=== PATIENT | female | born 1935 | race Caucasian/White ===

== ENCOUNTER → 2024-10-07 10:57 | Outpatient (REF) | payer MEDICARE, SELFPAY ==
[2024-10-07 11:28] LABS: % Basophils 0.4 % (0-2); % Eosinophils 0.7 % (0-6); % Immature Granulocytes 0.4 % (0-0.5); % Lymphocytes 30.7 % (20.5-51.1); % Monocytes 6.5 % (1.7-9.3); % Neutrophils 61.3 % (42.2-75.2); Absolute Lymphocytes 1.7 10^3/uL (1.2-3.4); Absolute Monocytes 0.4 10^3/uL (0.1-0.6); Absolute Neutrophils 3.5 10^3/uL (1.4-6.5); Hematocrit 38.8 % (37.0-47.0); Hemoglobin 13.1 g/dL (12.0-16.0); Mean Corp Hgb Conc. 33.8 g/dL (33.0-37.0); Mean Corpuscular Volume 97.7 fL (81.0-99.0); Mean Platelet Volume 12.7 fL (7.4-10.4); Nucleated Red Blood Cells % 0 %; Platelet Count 150 10^3/uL (130-400); Red Blood Cell Count 3.97 10^6/uL (4.20-5.40); Red Cell Dist. Width 14.2 % (11.5-14.5); White Blood Cell Count 5.7 10^3/uL (4.8-10.8)
[2024-10-07 11:34] LABS: Uric Acid 2.2 mg/dl (2.5-6.2)
== END ==
LOC: OLABN 10:57
PROVIDERS: ATTENDING PHYSICIAN Student in an Organized Health Care Education/Training Program
DX: L53.9 Erythematous condition, unspecified (principal); R22.40 Localized swelling, mass and lump, unspecified lower limb; M79.674 Pain in right toe(s)
CPT/HCPCS: 36415; 84550; 85025

== ENCOUNTER 2024-10-16 15:32 | Emergency (ER) | payer MEDICARE, SELFPAY ==
[2024-10-16 15:43] VITALS: BP 165/83
--- NOTE | 2024-10-16 15:44 | ED.GENMED ---
ED Provider Triage
<Adilson Westfall PA-C - Last Filed: 10/16/24 20:42>
-
Patient seen by provider in Triage?: Seen in Triage
Attestation: A medical screening examination has been initiated by a qualified medical provider. Based on the assessment performed at this time, it has been determined that an emergent medical condition may exist and the patient has been informed
that further medical evaluation and possible additional diagnostic testing may be needed.
HPI: 89-year-old female presenting the emergency department for diffuse body rash. Patient states it is not painful nor pruritic. Noticed this last night when she went to go shower. Recently on an antibiotic but unsure as to what for her toe
infection. Denies fevers or infectious symptoms. Patient otherwise hemodynamically stable. Labs ordered
GENERAL: Alert , in no apparent distress
EYE: No visual abnormalities.
NECK: Trachea midline
ENT: No visible abnormalities.
LUNGS: No acute respiratory distress
NEUROLOGICAL: Alert and oriented
SKIN: Skin intact. No visible changes.
MUSCULOSKELETAL: Moving extremities normally edema to bilateral feet did
PSYCH: Normal and appropriate interaction.
This is a medical evaluation conducted in person to initiate diagnostic evaluation and provide initial therapeutics. Please see further documentation by the treating clinician.
History of Present Illness
<Adilson Westfall PA-C - Last Filed: 10/16/24 20:42>
General
Chief Complaint: Skin Problem
Time Seen by Provider: 10/16/24 17:40
<Julianne Torres NP - Last Filed: 10/16/24 18:57>
General
Source: patient and family
Exam Limitations: none
Nursing documentation reviewed up to this point in time: agreed with
History of Present Illness
History of Present Illness:
Patient to ED for eval of skin rash. SHe states transport assistant noticed rash this AM. SHe denies any pain or itching. Rash located on trunk, upper and lower extremities. Denies any SOB, CP/pressure. No difficulty breathing or swallowing. SHe
was on an antibiotic for ingrown toenail. Finished course 3 days ago. She does not recall what antibiotic she took. Call placed to [facility], awaiting return call.
Past History
<Adilson Westfall PA-C - Last Filed: 10/16/24 20:42>
Past History
ED Past Medical History: GERD, HTN and Other (Diverticulitis, arthritis)
ED Past Surgical History: Cholecystectomy and Gynecological
Social History
Tobacco: Non-smoker
Alcohol: None
Drug: None
Personal:
Living: with family
Employment: Retired
Family History
Family History: Hypertension
Review of Systems
<Julianne Torres NP - Last Filed: 10/16/24 18:57>
Review of Systems
Allergies reviewed?: Yes
All Other Systems: ROS reviewed and negative except as documented in HPI and ROS
Constitutional: Reports no symptoms
EENT: Reports no symptoms
Respiratory: Reports no symptoms
Cardiac: Reports no symptoms
ABD/GI: Reports no symptoms
: Reports no symptoms
Musculoskeletal: Reports no symptoms
Skin: Reports other (Drug rash noted to trunk, upper and lower extremities.)
Neurological: Reports no symptoms
Psychiatric: Reports no symptoms
Phy Exam
<Julianne Torres NP - Last Filed: 10/16/24 18:57>
General Physical Exam
General Presentation: well appearing and no apparent distress
General age: appears stated age
General Skin: warm and dry
General Habitus: normal
Cardiovascular Exam
Cardiovascular Exam: regular rate/rhythm
Pulmonary Exam
Pulmonary Exam: lungs clear and no respiratory distress
Gastrointestinal Exam
Gastrointestinal Exam: non tender and soft
Musculoskeletal Exam
Musculoskeletal Exam: full ROM, no edema and neuro vasc intact
Skin Exam
Skin Exam: normal color, warm/dry and other (Erythematous drug rash noted to trunk, upper and lower extremities)
Psychiatric Exam
Psychiatric Exam: normal mood/affect
Course
<Adilson Westfall PA-C - Last Filed: 10/16/24 20:42>
Orders/Labs/Results
Orders:
Orders
10/16/24 15:50
Complete Blood Count/With Diff Urgent
Comprehensive Metabolic Panel Urgent
NT-proBNP Urgent
10/16/24 18:45
Prednisone [Deltasone] 40 mg PO NOW STA
Abnormal Lab Results
10/16/24
15:50
MCH 32.0 H pg
(27.0-31.0)
RDW 14.6 H %
(11.5-14.5)
MPV 10.9 H fL
(7.4-10.4)
Absolute Lymphs (auto) 0.9 L 10^3/uL
(1.2-3.4)
Neutrophils % 76.2 H %
(42.2-75.2)
Lymphocytes % 16.2 L %
(20.5-51.1)
BUN 23 H mg/dl
(7-17)
Glucose 133 H mg/dl
(70-99)
10/16/24 15:50
10/16/24 15:50
Vital Signs
Initial and Last Documented VS:
Initial Vital Signs
Temp Pulse Resp BP Pulse Ox
98.6 F 92 20 165/83 99
10/16/24 15:43 10/16/24 15:43 10/16/24 15:43 10/16/24 15:43 10/16/24 15:43
Last Documented Vital Signs
Temp Pulse Resp BP Pulse Ox
98.6 F 92 18 166/83 99
10/16/24 15:43 10/16/24 19:43 10/16/24 19:43 10/16/24 19:43 10/16/24 19:43
<Julianne Torres NP - Last Filed: 10/16/24 18:57>
Orders/Labs/Results
Orders:
Orders
10/16/24 15:50
Complete Blood Count/With Diff Urgent
Comprehensive Metabolic Panel Urgent
NT-proBNP Urgent
10/16/24 18:45
Prednisone [Deltasone] 40 mg PO NOW STA
Abnormal Lab Results
10/16/24
15:50
MCH 32.0 H pg
(27.0-31.0)
RDW 14.6 H %
(11.5-14.5)
MPV 10.9 H fL
(7.4-10.4)
Absolute Lymphs (auto) 0.9 L 10^3/uL
(1.2-3.4)
Neutrophils % 76.2 H %
(42.2-75.2)
Lymphocytes % 16.2 L %
(20.5-51.1)
BUN 23 H mg/dl
(7-17)
Glucose 133 H mg/dl
(70-99)
10/16/24 15:50
10/16/24 15:50
Vital Signs
Initial and Last Documented VS:
Initial Vital Signs
Temp Pulse Resp BP Pulse Ox
98.6 F 92 20 165/83 99
10/16/24 15:43 10/16/24 15:43 10/16/24 15:43 10/16/24 15:43 10/16/24 15:43
Last Documented Vital Signs
Temp Pulse Resp BP Pulse Ox
98.6 F 92 18 166/83 99
10/16/24 15:43 10/16/24 19:43 10/16/24 19:43 10/16/24 19:43 10/16/24 19:43
<Julianne Torres NP - Last Filed: 10/16/24 18:57>
*Critical Care Note
Total Time (30-74mins, 75-104mins- exclusive of procedures): Not Applicable
<Julianne Torres NP - Last Filed: 10/16/24 18:57>
Update Note
Update Note:
Patient to ED for eval of rash to trunk, upper and lower extremities. Noted by staff this AM. SHe completed course of antibiotic for ingrown toenail 3 days ago. She does not know name of antibiotic. Pharmacist attempting to obtain info from NH.
No difficulty breathing or swallowiing. No cough or trouble breathing. Will place on prednisone taper and discharge back to NH. Given instructions on s/s to return to ED and she is agreeable to plan.
ED Attending Note
<Adilson Westfall PA-C - Last Filed: 10/16/24 20:42>
-
Portions of this chart may have been created with voice recognition software.� Occasional wrong word or��sound alike� substitutions may have occurred due to the inherent limitations of voice recognition software.
Discharge Plan
Departure
Patient Disposition: Home (Routine Discharge)
Date of Disposition: 10/16/24
Time of Disposition: 18:46
Patient with high blood pressure during this ER visit?: No
Condition: Good
Covid-19: Not Applicable
Discharge Problem:
Allergic drug rash
Instructions: Adverse Drug Reactions, Adult ED, Skin rash - ED discharge instructions
Prescriptions:
New
prednisone 10 mg Tablet
See Rx Instructions .ROUTE .COMPLEX Qty: 30 0RF
Rx Instructions:
Take By Mouth:
40 mg daily x3 days, 30 mg daily x3 days,
20 mg daily x3 days, 10 mg daily x3 days.
No Action
meloxicam 7.5 MG tablet
7.5 mg PO BID
pantoprazole 40 MG tablet,delayed release (DR/EC)
40 mg PO BID
lisinopril 40 MG tablet
40 mg PO DAILY
alprazolam 0.25 MG tablet
0.25 mg PO HS
methenamine hippurate 1 GM tablet
1 gm PO Q12
ascorbic acid (vitamin C) [Vitamin C] 500 MG tablet
1,000 mg PO Q12
docusate sodium 100 MG capsule
100 mg PO DAILY
Referrals:
UNKNOWN - PT DOES,NOT KNOW [Family Provider] -
Activity Restrictions/Additional Instructions:
You have had a reaction to the antibiotic that you recently took. You will need to avoid this antibiotic in the further. Follow up with your family doctor. Return to the emergency department immediately for any changes in/worsening of your
symptoms.
Interventions
Interventions:
*Risk Screen - Suicide Last Done: 10/16/24 15:43
*General Assessment Last Done: 10/16/24 16:42
*Neglect/Abuse Screening Last Done: 10/16/24 16:42
*ED COVID-19 Vaccine History Last Done: 10/16/24 16:42
*Nursing Disposition Last Done: 10/16/24 19:43
ED-Skin Assessment Last Done: 10/16/24 16:42
Discharge Date and Time
Print Language: JORDANIAN
[2024-10-16 16:09] LABS: % Basophils 0.4 % (0-2); % Eosinophils 1.6 % (0-6); % Immature Granulocytes 0.4 % (0-0.5); % Lymphocytes 16.2 % (20.5-51.1); % Monocytes 5.2 % (1.7-9.3); % Neutrophils 76.2 % (42.2-75.2); Absolute Eosinophils 0.1 10^3/uL (0-0.7); Absolute Lymphocytes 0.9 10^3/uL (1.2-3.4); Absolute Monocytes 0.3 10^3/uL (0.1-0.6); Absolute Neutrophils 4.3 10^3/uL (1.4-6.5); Hematocrit 42.2 % (37.0-47.0); Hemoglobin 14.1 g/dL (12.0-16.0); Mean Corp Hgb Conc. 33.4 g/dL (33.0-37.0); Mean Corpuscular Volume 95.7 fL (81.0-99.0); Mean Platelet Volume 10.9 fL (7.4-10.4); Nucleated Red Blood Cells % 0 %; Platelet Count 165 10^3/uL (130-400); Red Blood Cell Count 4.41 10^6/uL (4.20-5.40); Red Cell Dist. Width 14.6 % (11.5-14.5); White Blood Cell Count 5.6 10^3/uL (4.8-10.8)
[2024-10-16 16:22] LABS: ALT (SGPT) 13 U/L (0-35); AST (SGOT) 17 U/L (14-36); Albumin 4.1 g/dl (3.5-5.0); Alkaline Phosphatase 115 U/L (38-126); Blood Urea Nitrogen 23 mg/dl (7-17); Calcium 8.5 mg/dl (8.4-10.2); Carbon Dioxide 22 mmol/L (22-30); Chloride 105 mmol/L (98-107); Glucose 133 mg/dl (70-99); Potassium 4.3 mmol/L (3.5-5.1); Sodium 138 mmol/L (135-145); Total Bilirubin 0.8 mg/dl (0.2-1.3); Total Protein 6.5 g/dl (6.3-8.2); eGFR > 60.00
[2024-10-16 16:30] LABS: NT-proBNP 184 pg/ml
[2024-10-16] MEDS: DELTASONE 40 MG PO (19:03)
[2024-10-16 19:43] VITALS: BP 166/83
== END 2024-10-16 21:26 ==
LOC: EMR 15:32
PROVIDERS: Physician Assistant Medical; EMERGENCY PHYSICIAN Emergency Medicine
DX: L27.0 Generalized skin eruption due to drugs and medicaments taken internally (principal); T36.95XA Adverse effect of unspecified systemic antibiotic, initial encounter; I10 Essential (primary) hypertension; K21.9 Gastro-esophageal reflux disease without esophagitis; Z90.49 Acquired absence of other specified parts of digestive tract
CPT/HCPCS: 99283; 80053; 83880; 85025

== ENCOUNTER → 2024-10-31 02:00 | Outpatient (REF) | payer MEDICARE, SELFPAY ==
[2024-10-31 12:43] LABS: Urine Albumin 1+ (Neg - Trace); Urine Bilirubin Negative (Negative); Urine Character Clear (Clear); Urine Color Yellow; Urine Glucose Negative (Negative); Urine Ketone Negative (Negative); Urine Leukocyte Negative (Negative); Urine Nitrite Negative (Negative); Urine Occult Blood Negative (Negative); Urine Specific Gravity 1.015 (<1.030); Urine Urobilinogen Negative (Neg - 1+)
[2024-10-31 13:55] LABS: Urine Bacteria Few (Negative); Urine Red Blood Cell 0-2 /HPF (0-2); Urine Urothelial Cell 0-2 /LPF (FEW); Urine White Cell 0-2 /HPF (0-5)
== END ==
LOC: OLABN 02:00
PROVIDERS: ATTENDING PHYSICIAN Student in an Organized Health Care Education/Training Program
DX: R82.90 Unspecified abnormal findings in urine (principal)
CPT/HCPCS: 81003; 81015

== ENCOUNTER → 2025-02-24 13:42 | Outpatient (REF) | payer MEDICARE, SELFPAY | LOC: OLABN 13:42 | PROVIDERS: ATTENDING PHYSICIAN Student in an Organized Health Care Education/Training Program | DX: L53.9 Erythematous condition, unspecified (principal); R22.40 Localized swelling, mass and lump, unspecified lower limb; M79.674 Pain in right toe(s) | CPT/HCPCS: 36415; 84550 ==

== ENCOUNTER → 2025-08-25 13:11 | Outpatient (REF) | payer MEDICARE, SELFPAY | LOC: RAD 13:11 | PROVIDERS: ATTENDING PHYSICIAN Registered Nurse; FAMILY PHYSICIAN Student in an Organized Health Care Education/Training Program | DX: R22.43 Localized swelling, mass and lump, lower limb, bilateral (principal); I70.203 Unspecified atherosclerosis of native arteries of extremities, bilateral legs | CPT/HCPCS: 93922; 93970 ==